=== PATIENT | female | born 1955 | race American Indian/Alaskan Native ===

== ENCOUNTER 2021-04-03 17:30 | Observation (INO) | payer OTHER ==
--- NOTE | 2021-04-03 17:36 | Event Note ---
ED Screening Note ED Screening Note: poor informant lung ca chemo due yesterday- too sick--moved to Wednesday has a port no hx in EMR Can not tell me her MD no family here at this time tachycardia in triage actively vomiting blood RN asked to take pt to main for immediate eval. This initial assessment/diagnostic orders/clinical plan/treatment(s) is/are subject to change based on patients health status, clinical progression and re- assessment by fellow clinical providers in the ED. Further treatment and workup at subsequent clinical providers discretion. Patient/guardian urged not to elope from the ED as their condition may be serious if not clinically assessed and managed. Initial orders include: labs/cultures/hydration will need further hx from family
[2021-04-03] MEDS ORDERED: ONDANSETRON 4 MG/2 ML INJ IV ONE (17:39)
[2021-04-03] MEDS ORDERED: SODIUM CHLORIDE 0.9% 1000 ML 1,000 ML IV ONE (17:40)
[2021-04-03 18:05] LABS: Hematocrit 26.4 % (30.3-42.9); Hemoglobin 8.7 gm/dl (10.1-14.3); Mean Corpuscular HGB Conc 33 % (30-34); Mean Corpuscular Volume 92 fl (79-97); Platelet Count 290 K/mm3 (140-440); Red Blood Count 2.87 M/mm3 (3.65-5.03)
[2021-04-03 18:06] LABS: Red Cell Distribution Width 24.8 % (13.2-15.2)
--- NOTE | 2021-04-03 18:12 | Emergency Department Report ---
HPI - General Chief Complaint: Nausea/Vomiting/Diarrhea Time Seen by Provider: 04/03/21 17:35 - HPI HPI: 65-year-old female with history of lung cancer with her last chemo being 3 weeks ago presents complaining of hemoptysis for the last 3 to 4 hours. The patient states that for the last day or so she has had a dry cough and has felt slightly lightheaded. For the past 3 to 4 hours she says she has been coughing up bloody sputum as well as blood clots. She says she is not vomiting blood but is actually coughing up blood. This is the reason she decided to come in. She was supposed to have chemo yesterday but was unable because she felt lightheaded. Other than the hemoptysis, she denies any associated fever/chills, vision change, neck pain, chest pain, shortness of breath, abdominal pain, nausea, or any other complaints. ED Past Medical Hx - Past Medical History Previous Medical History?: Yes Hx Hypertension: Yes Hx of Cancer: Yes (Lung CA February 2021 dx) Hx Asthma: Yes Hx COPD: Yes - Surgical History Past Surgical History?: Yes Additional Surgical History: Philip cath placement ED Review of Systems ROS: Stated complaint: VOMITING BLOOD Other details as noted in HPI Constitutional: denies: chills, fever Eyes: denies: eye pain, vision change ENT: denies: throat pain, congestion Respiratory: cough, other (hemoptysis). denies: shortness of breath Cardiovascular: denies: chest pain, palpitations Gastrointestinal: denies: abdominal pain, nausea, vomiting Genitourinary: denies: dysuria, frequency Musculoskeletal: denies: back pain, myalgia Skin: denies: rash Neurological: denies: headache, weakness, numbness Physical Exam - Physical Exam Vital Signs: Vital Signs 04/03/21 17:40 Temperature 98.2 F Pulse Rate 117 H Respiratory 24 Rate Blood Pressure 142/71 [Right] O2 Sat by Pulse 96 Oximetry Physical Exam: GENERAL: Well developed and well nourished. No acute distress HEENT: Normocephalic. No obvious signs of trauma. Slightly dry mucous membranes. Posterior pharynx is visualized without any obvious abnormalities EYES: Extraocular movements are intact. Pupils are equal round and reactive to light bilaterally NECK: Supple. Trachea is midline. LUNGS: Slightly tachypneic but without accessory muscle use. Equal chest rise bilaterally. There are rales and rhonchi heard over the right mid and lower lung velez. Otherwise clear to auscultation. HEART/CARDIOVASCULAR: Tachycardic but with regular rhythm. No murmurs or rubs. VASCULAR: 2+ peripheral pulses. Cap refill < 2 seconds. Trace pitting edema bilaterally. ABDOMEN: Abdomen is soft and nondistended. There is no significant tenderness, guarding or rebound. SKIN: Skin is warm and dry NEURO: Patient is awake, alert, and oriented. champion of sustainable design II-XII grossly intact. No focal deficits. Normal motor and sensory exam throughout. Normal speech. MUSCULOSKELETAL: No obvious deformities. No significant tenderness. Normal ROM throughout. BACK/SPINE: No costovertebral angle tenderness. ED Course Vital Signs 04/03/21 17:40 Temperature 98.2 F Pulse Rate 117 H Respiratory 24 Rate Blood Pressure 142/71 [Right] O2 Sat by Pulse 96 Oximetry ED Medical Decision Making - Lab Data Result diagrams: 04/03/21 20:47 04/03/21 17:51 Lab Results 04/03/21 04/03/21 04/03/21 Range/Units 17:51 17:51 17:51 WBC 11.7 H (4.5-11.0) K/mm3 RBC 2.87 L (3.65-5.03) M/mm3 Hgb 8.7 L (10.1-14.3) gm/dl Hct 26.4 L (30.3-42.9) % MCV 92 (79-97) fl MCH 30 (28-32) pg MCHC 33 (30-34) % RDW 24.8 H (13.2-15.2) % Plt Count 290 (140-440) K/mm3 Add Manual Diff Complete Total Counted 100 Seg Neuts % (Manual) 81.0 H (40.0-70.0) % Band Neutrophils % 1.0 % Lymphocytes % (Manual) 12.0 L (13.4-35.0) % Monocytes % (Manual) 4.0 (0.0-7.3) % Eosinophils % (Manual) 1.0 (0.0-4.3) % Metamyelocytes % 1.0 % Myelocytes % % Nucleated RBC % Not Reportable Seg Neutrophils # Man 9.5 H (1.8-7.7) K/mm3 Band Neutrophils # 0.1 K/mm3 Lymphocytes # (Manual) 1.4 (1.2-5.4) K/mm3 Abs React Lymphs (Man) 0.0 K/mm3 Monocytes # (Manual) 0.5 (0.0-0.8) K/mm3 Eosinophils # (Manual) 0.1 (0.0-0.4) K/mm3 Basophils # (Manual) 0.0 (0.0-0.1) K/mm3 Metamyelocytes # 0.1 K/mm3 Myelocytes # 0.0 K/mm3 Promyelocytes # 0.0 K/mm3 Blast Cells # 0.0 K/mm3 WBC Morphology Not Reportable Hypersegmented Neuts Not Reportable Hyposegmented Neuts Not Reportable Hypogranular Neuts Not Reportable Smudge Cells Not Reportable Toxic Granulation Not Reportable Toxic Vacuolation Not Reportable Dohle Bodies Not Reportable Pelger-Huet Anomaly Not Reportable Shahnaz Rods Not Reportable Platelet Estimate Consistent w auto Clumped Platelets Not Reportable Plt Clumps, EDTA Not Reportable Large Platelets Few Giant Platelets Not Reportable Platelet Satelliting Not Reportable Plt Morphology Comment Not Reportable RBC Morphology Not Reportable Dimorphic RBCs Not Reportable Polychromasia 1+ Hypochromasia Not Reportable Poikilocytosis Not Reportable Anisocytosis 2+ Microcytosis Not Reportable Macrocytosis Few Spherocytes Not Reportable Pappenheimer Bodies Not Reportable Sickle Cells Not Reportable Target Cells Not Reportable Tear Drop Cells Not Reportable Ovalocytes Not Reportable Helmet Cells Not Reportable Good-Frost Bodies Not Reportable Blanchard Rings Not Reportable Hunker Cells Not Reportable Bite Cells Not Reportable Crenated Cell Not Reportable Elliptocytes Not Reportable Acanthocytes (Spur) Not Reportable Rouleaux Not Reportable Hemoglobin C Crystals Not Reportable Schistocytes Not Reportable Malaria parasites Not Reportable Manohar Bodies Not Reportable Hem Pathologist Commnt No PT 14.2 (12.2-14.9) Sec. INR 1.04 (0.87-1.13) APTT 33.3 (24.2-36.6) Sec. Sodium 131 L (137-145) mmol/L Potassium 3.8 (3.6-5.0) mmol/L Chloride 96.1 L (98-107) mmol/L Carbon Dioxide 27 (22-30) mmol/L Anion Gap 12 mmol/L BUN 7 (7-17) mg/dL Creatinine 0.3 L (0.6-1.2) mg/dL Estimated GFR > 60 ml/min BUN/Creatinine Ratio 23 % Glucose 99 (65-100) mg/dL Lactic Acid (0.7-2.0) mmol/L Uric Acid (3.5-7.6) mg/dL Calcium 8.1 L (8.4-10.2) mg/dL Phosphorus (2.5-4.5) mg/dL Magnesium (1.7-2.3) mg/dL Total Bilirubin 0.20 (0.1-1.2) mg/dL AST 23 (5-40) units/L ALT 27 (7-56) units/L Alkaline Phosphatase 241 H (35-129) units/L Lactate Dehydrogenase (91-180) units/L Total Protein 6.6 (6.3-8.2) g/dL Albumin 3.0 L (3.9-5) g/dL Albumin/Globulin Ratio 0.8 % Lipase 34 (13-60) units/L Urine Color (Yellow) Urine Turbidity (Clear) Urine pH (5.0-7.0) Ur Specific [place] (1.003-1.030) Urine Protein (Negative) mg/dL Urine Glucose (UA) (Negative) mg/dL Urine Ketones (Negative) mg/dL Urine Blood (Negative) Urine Nitrite (Negative) Urine Bilirubin (Negative) Urine Urobilinogen (<2.0) mg/dL Ur Leukocyte Esterase (Negative) Urine WBC (Auto) (0.0-6.0) /HPF Urine RBC (Auto) (0.0-6.0) /HPF U Epithel Cells (Auto) (0-13.0) /HPF Urine Bacteria (Auto) (Negative) /HPF Urine Mucus /HPF Blood Type Antibody Screen 04/03/21 04/03/21 04/03/21 Range/Units 17:51 17:51 17:51 WBC (4.5-11.0) K/mm3 RBC (3.65-5.03) M/mm3 Hgb (10.1-14.3) gm/dl Hct (30.3-42.9) % MCV (79-97) fl MCH (28-32) pg MCHC (30-34) % RDW (13.2-15.2) % Plt Count (140-440) K/mm3 Add Manual Diff Total Counted Seg Neuts % (Manual) (40.0-70.0) % Band Neutrophils % % Lymphocytes % (Manual) (13.4-35.0) % Monocytes % (Manual) (0.0-7.3) % Eosinophils % (Manual) (0.0-4.3) % Metamyelocytes % % Myelocytes % % Nucleated RBC % Seg Neutrophils # Man (1.8-7.7) K/mm3 Band Neutrophils # K/mm3 Lymphocytes # (Manual) (1.2-5.4) K/mm3 Abs React Lymphs (Man) K/mm3 Monocytes # (Manual) (0.0-0.8) K/mm3 Eosinophils # (Manual) (0.0-0.4) K/mm3 Basophils # (Manual) (0.0-0.1) K/mm3 Metamyelocytes # K/mm3 Myelocytes # K/mm3 Promyelocytes # K/mm3 Blast Cells # K/mm3 WBC Morphology Hypersegmented Neuts Hyposegmented Neuts Hypogranular Neuts Smudge Cells Toxic Granulation Toxic Vacuolation Dohle Bodies Pelger-Huet Anomaly Shahnaz Rods Platelet Estimate Clumped Platelets Plt Clumps, EDTA Large Platelets Giant Platelets Platelet Satelliting Plt Morphology Comment RBC Morphology Dimorphic RBCs Polychromasia Hypochromasia Poikilocytosis Anisocytosis Microcytosis Macrocytosis Spherocytes Pappenheimer Bodies Sickle Cells Target Cells Tear Drop Cells Ovalocytes Helmet Cells Good-Frost Bodies Blanchard Rings Hunker Cells Bite Cells Crenated Cell Elliptocytes Acanthocytes (Spur) Rouleaux Hemoglobin C Crystals Schistocytes Malaria parasites Manohar Bodies Hem Pathologist Commnt PT (12.2-14.9) Sec. INR (0.87-1.13) APTT (24.2-36.6) Sec. Sodium (137-145) mmol/L Potassium (3.6-5.0) mmol/L Chloride (98-107) mmol/L Carbon Dioxide (22-30) mmol/L Anion Gap mmol/L BUN (7-17) mg/dL Creatinine (0.6-1.2) mg/dL Estimated GFR ml/min BUN/Creatinine Ratio % Glucose (65-100) mg/dL Lactic Acid 1.20 (0.7-2.0) mmol/L Uric Acid 3.7 (3.5-7.6) mg/dL Calcium (8.4-10.2) mg/dL Phosphorus 3.30 (2.5-4.5) mg/dL Magnesium 1.60 L (1.7-2.3) mg/dL Total Bilirubin (0.1-1.2) mg/dL AST (5-40) units/L ALT (7-56) units/L Alkaline Phosphatase (35-129) units/L Lactate Dehydrogenase 208 H (91-180) units/L Total Protein (6.3-8.2) g/dL Albumin (3.9-5) g/dL Albumin/Globulin Ratio % Lipase (13-60) units/L Urine Color (Yellow) Urine Turbidity (Clear) Urine pH (5.0-7.0) Ur Specific [place] (1.003-1.030) Urine Protein (Negative) mg/dL Urine Glucose (UA) (Negative) mg/dL Urine Ketones (Negative) mg/dL Urine Blood (Negative) Urine Nitrite (Negative) Urine Bilirubin (Negative) Urine Urobilinogen (<2.0) mg/dL Ur Leukocyte Esterase (Negative) Urine WBC (Auto) (0.0-6.0) /HPF Urine RBC (Auto) (0.0-6.0) /HPF U Epithel Cells (Auto) (0-13.0) /HPF Urine Bacteria (Auto) (Negative) /HPF Urine Mucus /HPF Blood Type B POSITIVE Antibody Screen Positive 04/03/21 04/03/21 Range/Units 20:34 20:47 WBC 14.6 H (4.5-11.0) K/mm3 RBC 2.74 L (3.65-5.03) M/mm3 Hgb 8.4 L (10.1-14.3) gm/dl Hct 25.5 L (30.3-42.9) % MCV 93 (79-97) fl MCH 31 (28-32) pg MCHC 33 (30-34) % RDW 25.3 H (13.2-15.2) % Plt Count 273 (140-440) K/mm3 Add Manual Diff Complete Total Counted 100 Seg Neuts % (Manual) 77.0 H (40.0-70.0) % Band Neutrophils % 2.0 % Lymphocytes % (Manual) 11.0 L (13.4-35.0) % Monocytes % (Manual) 6.0 (0.0-7.3) % Eosinophils % (Manual) 1.0 (0.0-4.3) % Metamyelocytes % 1.0 % Myelocytes % 2.0 % Nucleated RBC % Not Reportable Seg Neutrophils # Man 11.2 H (1.8-7.7) K/mm3 Band Neutrophils # 0.3 K/mm3 Lymphocytes # (Manual) 1.6 (1.2-5.4) K/mm3 Abs React Lymphs (Man) 0.0 K/mm3 Monocytes # (Manual) 0.9 H (0.0-0.8) K/mm3 Eosinophils # (Manual) 0.1 (0.0-0.4) K/mm3 Basophils # (Manual) 0.0 (0.0-0.1) K/mm3 Metamyelocytes # 0.1 K/mm3 Myelocytes # 0.3 K/mm3 Promyelocytes # 0.0 K/mm3 Blast Cells # 0.0 K/mm3 WBC Morphology Not Reportable Hypersegmented Neuts Not Reportable Hyposegmented Neuts Not Reportable Hypogranular Neuts Not Reportable Smudge Cells Not Reportable Toxic Granulation Not Reportable Toxic Vacuolation Not Reportable Dohle Bodies Not Reportable Pelger-Huet Anomaly Not Reportable Shahnaz Rods Not Reportable Platelet Estimate Consistent w auto Clumped Platelets Not Reportable Plt Clumps, EDTA Not Reportable Large Platelets Not Reportable Giant Platelets Not Reportable Platelet Satelliting Not Reportable Plt Morphology Comment Not Reportable RBC Morphology Not Reportable Dimorphic RBCs Not Reportable Polychromasia Few Hypochromasia Not Reportable Poikilocytosis Not Reportable Anisocytosis 2+ Microcytosis Not Reportable Macrocytosis Not Reportable Spherocytes Not Reportable Pappenheimer Bodies Not Reportable Sickle Cells Not Reportable Target Cells Not Reportable Tear Drop Cells Not Reportable Ovalocytes Not Reportable Helmet Cells Not Reportable Good-Frost Bodies Not Reportable Blanchard Rings Not Reportable Hunker Cells Not Reportable Bite Cells Not Reportable Crenated Cell Not Reportable Elliptocytes Not Reportable Acanthocytes (Spur) Not Reportable Rouleaux Not Reportable Hemoglobin C Crystals Not Reportable Schistocytes Not Reportable Malaria parasites Not Reportable Manohar Bodies Not Reportable Hem Pathologist Commnt No PT (12.2-14.9) Sec. INR (0.87-1.13) APTT (24.2-36.6) Sec. Sodium (137-145) mmol/L Potassium (3.6-5.0) mmol/L Chloride (98-107) mmol/L Carbon Dioxide (22-30) mmol/L Anion Gap mmol/L BUN (7-17) mg/dL Creatinine (0.6-1.2) mg/dL Estimated GFR ml/min BUN/Creatinine Ratio % Glucose (65-100) mg/dL Lactic Acid (0.7-2.0) mmol/L Uric Acid (3.5-7.6) mg/dL Calcium (8.4-10.2) mg/dL Phosphorus (2.5-4.5) mg/dL Magnesium (1.7-2.3) mg/dL Total Bilirubin (0.1-1.2) mg/dL AST (5-40) units/L ALT (7-56) units/L Alkaline Phosphatase (35-129) units/L Lactate Dehydrogenase (91-180) units/L Total Protein (6.3-8.2) g/dL Albumin (3.9-5) g/dL Albumin/Globulin Ratio % Lipase (13-60) units/L Urine Color Yellow (Yellow) Urine Turbidity Clear (Clear) Urine pH 8.0 H (5.0-7.0) Ur Specific [place] 1.053 H (1.003-1.030) Urine Protein <15 mg/dl (Negative) mg/dL Urine Glucose (UA) Neg (Negative) mg/dL Urine Ketones Neg (Negative) mg/dL Urine Blood Neg (Negative) Urine Nitrite Neg (Negative) Urine Bilirubin Neg (Negative) Urine Urobilinogen 4.0 (<2.0) mg/dL Ur Leukocyte Esterase Lg (Negative) Urine WBC (Auto) 29.0 H (0.0-6.0) /HPF Urine RBC (Auto) 12.0 (0.0-6.0) /HPF U Epithel Cells (Auto) 1.0 (0-13.0) /HPF Urine Bacteria (Auto) 1+ (Negative) /HPF Urine Mucus Few /HPF Blood Type Antibody Screen - EKG Data -: EKG Interpreted by Me - EKG Data 04/03/21 19:24 Sinus tachycardia. Normal axis. Normal intervals. No ectopy. No significant ST segment or T wave abnormalities. - Radiology Data CHEST 1 VIEW 04/03/2021 5:44 PM INDICATION / CLINICAL INFORMATION: Shortness of breath. COMPARISON: None available. FINDINGS: SUPPORT DEVICES: Right IJ central venous port appears appropriately position. HEART / MEDIASTINUM: No significant abnormality. LUNGS / PLEURA: There is a nodular opacity in the right upper lobe. No pneumothorax. ADDITIONAL FINDINGS: No significant additional findings. IMPRESSION: 1. Nodular opacity in the right upper lobe. Further evaluation with CT of the chest recommended. Signer Name: Daniel Fabian MD Signed: 04/03/2021 5:15 PM Workstation Name: [email or web address]) CTA CHEST WITH IV CONTRAST INDICATION: Hemoptysis, possible PE. TECHNIQUE: Axial CT images were obtained through the chest after injection of 100 cc O mnipaque 350 IV contrast. 3 plane MIP reconstructions were produced. All CT scans at this location are performed using CT dose reduction for ALARA by means of automated exposure control. COMPARISON: One view of the chest performed today. FINDINGS: PULMONARY ARTERIES: There is good opacification of the pulmonary arteries to the subsegmental level without visualization of pulmonary emboli. Narrowing of right upper lobe pulmonary artery segments and subsegments is seen secondary to mediastinal adenopathy and a right upper lobe mass. AORTA AND ARTERIES: The aorta is normal in caliber with mild generalized atherosclerosis and no other significant abnormalities. HEART: Normal in size with a trace pericardial effusion. MEDIASTINUM: Confluent mediastinal lymphadenopathy is seen most notably along the right hilar and subcarinal regions measuring approximately 5.5 x 4.0 cm. The margins of this l ymphadenopathy or somewhat indistinct. The trachea and main bronchi are patent and normal in caliber. LUNGS: A right upper lobe mass measures approximately 5.6 x 3.4 cm on image 36 of series 2. There is surrounding probable atelectasis. A moderate right pleural effusion is noted. There are 2 noncalcified right lower lobe nodules present laterally on images 53 through 57 of series 2 measuring up to 5.8 mm. No pneumothorax or other significant abnormalities. ADDITIONAL FINDINGS: A right subclavian vein Port-A-Cath is seen that terminates at the cavoatrial junction with questionable thrombus noted along the distal third of its course. UPPER ABDOMEN: No acute findings. BONES: No significant osseous abnormality. IMPRESSION: 1. No CT evidence for pulmonary embolism. 2. Suspected advanced right upper lobe bronchogenic carcinoma as above. Please correlate with the patient's history. 3. Additional findings as above. Signer Name: Marcos Lawton MD Signed: 04/03/2021 7:09 PM Workstation Name: [id number] - Medical Decision Making 65-year-old female with history of lung cancer presents complaining of 3 to 4 hours of hemoptysis and 1 day of cough. She is coughing up bloody sputum and blood clots. Denies chest pain or shortness of breath. Initial assessment she is afebrile, hypertensive, and tachycardic with a heart rate in the 110s. She is slightly tachypneic but in no acute distress. She has slightly dry mucous membranes. Lung auscultation reveals rhonchi and crackles over the right mid to lower lung velez. The remainder of her physical examination is grossly within normal limits. Given that this is the patient with a history of cancer and currently on chemotherapy (last treatment 3 weeks ago), full sepsis order set was initiated including labs and cultures. In addition I have ordered CTA of the chest to assess for evidence of pulmonary embolism. We will give 1 L of IV fluids and reassess frequently. On repeat assessment at 7:15 PM, the patient is resting comfortably in the bed. She has had no further episodes of hemoptysis since arrival. IV fluids are running. Labs have resulted and reveal white blood cell count of 11.7. She do es have anemia with a hemoglobin of 8.7 but from unknown baseline. Sodium is slightly low at 131, otherwise there are no significant electrolyte abnormalities and kidney function is normal. We will follow up the results of the CTA of the chest and continue monitor her closely. At 8:53 PM I spoke with Dr. Padro who is covering for the patient's oncologisat Dr. Cain. We discussed the details of the case including the presentation, vital signs, and results of the labs as well as scans. CTA of the chest is resulted in reveals no evidence of pulmonary embolism. There are findings consistent with advanced lung carcinoma. I expressed my concern about the patient's hemoglobin of 8.7. He states that if the patient is stable she should be discharged home with instructions to follow-up with Dr. Hall in the office tomorrow who will arrange for possible scope by GI. I asked him if he would like me to repeat a CBC to ensure that the hemoglobin is stable and he stated his agreement with this plan. On repeat assessment at 9:35 PM, the patient is resting comfortably in the bed. Still without any further episodes of hemoptysis. Repeat CBC reveals hemoglobin of 8.4. The patient's leukocytosis on repeat CBC could be related to the physiologic stress of coming to the emergency room and having an IV placed. There is no mention of opacities in the lungs to suggest pneumonia and there is no other findings to suggest infection. The patient will receive an additional 500 mL bolus of IV fluids. Her heart rate is now ranging from 95- 100s. If she remains stable with improved heart rate she will be discharged home according to the plan outlined above. Around 10:50 PM, while receiving the last fluid bolus, the patient again started having hemoptysis. In light of this, given her low hemoglobin and mild persistent tachycardia, she will be admitted to the hospitalist for further observation, work-up, and management. Given leukocytosis on recent CBC will give 1 dose of IV ceftriaxone in case of concomitant pneumonia. This was all explained to the patient expressed understanding and agreement with the plan of care. Urinalysis has returned and reveals evidence of urinary tract infection which will also be covered by ceftriaxone. Critical Care Time: Yes (35) Critical care time in (mins) excluding proc time.: 35 Critical care attestation.: If time is entered above; I have spent that time in minutes in the direct care of this critically ill patient, excluding procedure time. Critical care time was spent in the assessment, evaluation, management, and coordination of care for critical anemia and hemoptysis requiring close observation and multiple reassessments ED Disposition Clinical Impression: Carcinoma, lung, Hemoptysis, unspecified, Anemia, UTI (urinary tract infection) Disposition: OP ADMIT IP TO THIS HOSP Is pt being admited?: Yes Condition: Fair
[2021-04-03 18:14] LABS: INR 1.04 (0.87-1.13)
[2021-04-03 18:15] LABS: Partial Thromboplastin Time 33.3 Sec. (24.2-36.6)
--- NOTE | 2021-04-03 18:19 | XRay Report ---
CHEST 1 VIEW 04/03/2021 5:44 PM INDICATION / CLINICAL INFORMATION: Shortness of breath. COMPARISON: None available. FINDINGS: SUPPORT DEVICES: Right IJ central venous port appears appropriately position. HEART / MEDIASTINUM: No significant abnormality. LUNGS / PLEURA: There is a nodular opacity in the right upper lobe. No pneumothorax. ADDITIONAL FINDINGS: No significant additional findings. IMPRESSION: 1. Nodular opacity in the right upper lobe. Further evaluation with CT of the chest recommended. Signer Name: Daniel Fabian MD Signed: 04/03/2021 6:15 PM Workstation Name: [id number]
[2021-04-03 18:29] LABS: Alanine Aminotransferase 27 units/L (7-56); Blood Urea Nitrogen 7 mg/dL (7-17); Calcium 8.1 mg/dL (8.4-10.2); Hemolysis Index 1
[2021-04-03 18:32] LABS: BUN/Creatinine Ratio 23; Uric Acid 3.7 mg/dL (3.5-7.6)
--- NOTE | 2021-04-03 20:13 | Cat Scan Report ---
CTA CHEST WITH IV CONTRAST INDICATION: Hemoptysis, possible PE. TECHNIQUE: Axial CT images were obtained through the chest after injection of 100 cc Omnipaque 350 IV contrast. 3 plane MIP reconstructions were produced. All CT scans at this location are performed using CT dose reduction for ALARA by means of automated exposure control. COMPARISON: One view of the chest performed today. FINDINGS: PULMONARY ARTERIES: There is good opacification of the pulmonary arteries to the subsegmental level w ithout visualization of pulmonary emboli. Narrowing of right upper lobe pulmonary artery segments and subsegments is seen secondary to mediastinal adenopathy and a right upper lobe mass. AORTA AND ARTERIES: The aorta is normal in caliber with mild generalized atherosclerosis and no other significant abnormalities. HEART: Normal in size with a trace pericardial effusion. MEDIASTINUM: Confluent mediastinal lymphadenopathy is seen most notably along the right hilar and sub carinal regions measuring approximately 5.5 x 4.0 cm. The margins of this lymphadenopathy or somewhat indistinct. The trachea and main bronchi are patent and normal in caliber. LUNGS: A right upper lobe mass measures approximately 5.6 x 3.4 cm on image 36 of series 2. There is surrounding probable atelectasis. A moderate right pleural effusion is noted. There are 2 noncalcifie d right lower lobe nodules present laterally on images 53 through 57 of series 2 measuring up to 5.8 mm. No pneumothorax or other significant abnormalities. ADDITIONAL FINDINGS: A right subclavian vein Port-A-Cath is seen that terminates at the cavoatrial ju nction with questionable thrombus noted along the distal third of its course. UPPER ABDOMEN: No acute findings. BONES: No significant osseous abnormality. IMPRESSION: 1. No CT evidence for pulmonary embolism. 2. Suspected advanced right upper lobe bronchogenic carcinoma as above. Please correlate with the pat ient's history. 3. Additional findings as above. Signer Name: Marcos Lawton MD Signed: 04/03/2021 8:09 PM Workstation Name: [id number]
[2021-04-03 20:15] LABS: Anisocytosis 2+; Band Neutrophils # (Manual) 0.1 K/mm3; Large Platelets Few; Macrocytosis Few; Platelet Estimate Consistent w Auto; Total Cells Counted 100
[2021-04-03] MEDS ORDERED: SODIUM CHLORIDE 0.9% 500 ML 500 ML IV ONE (20:54)
[2021-04-03] MEDS ORDERED: PANTOPRAZOLE 40 MG INJ IV ONE (20:54)
[2021-04-03 21:06] LABS: Bacteria,Urine 1+ /HPF (Negative); Bilirubin,Urine NEG (Negative); Blood,Urine NEG (Negative); Color,Urine Yellow (Yellow); Mucus,Urine FEW /HPF; Protein,Urine <15 mg/dL mg/dL (Negative)
[2021-04-03 21:10] LABS: Hematocrit 25.5 % (30.3-42.9); Hemoglobin 8.4 gm/dl (10.1-14.3); Mean Corpuscular HGB Conc 33 % (30-34); Mean Corpuscular Volume 93 fl (79-97); Platelet Count 273 K/mm3 (140-440); Red Blood Count 2.74 M/mm3 (3.65-5.03)
[2021-04-03 21:15] LABS: Red Cell Distribution Width 25.3 % (13.2-15.2)
[2021-04-03 22:30] LABS: Anisocytosis 2+; Band Neutrophils # (Manual) 0.3 K/mm3; Myelocytes # (Manual) 0.3 K/mm3; Total Cells Counted 100
[2021-04-03 22:31] LABS: Platelet Estimate Consistent w Auto
[2021-04-03] MEDS ORDERED: cefTRIAXone/NS 1 GM/50 ML 1 GM/50 ML BAG IV ONE (23:12)
[2021-04-03] MEDS ORDERED: ONDANSETRON 4 MG/2 ML INJ IV PRN (23:23)
[2021-04-03] MEDS ORDERED: MORPHINE 2 MG/1 ML INJ IV PRN (23:23)
--- NOTE | 2021-04-03 23:31 | History and Physical Report ---
History of Present Illness Date of examination: 04/03/21 Date of admission: 04/03/21 23:01 Chief complaint: Hemoptysis History of present illness: 65-year-old -Filipino female with known history of lung cancer currently on chemotherapy presents to the emergency room today complaining of hemoptysis which has been ongoing for the past 3 to 4 days. Patient states that she initially had some dry cough and subsequently started having hemoptysis. She denies any fever or chills and denies any chest pain, no nausea vomiting and no diarrhea. Denies any headache but feels lightheaded occasionally. Patient was supposed to have chemotherapy yesterday but was unable to make the appointment due to her lightheadedness. Her last chemotherapy was about 3 weeks ago. Patient follows up with oncology at [facility]. Her oncologist is Patient denies any sick contacts and no recent travel. Denies any contact with anyone with COVID-19. Work-up in the emergency room today reveals a hemoglobin of 8.7 and a white count of 15. Patient is being admitted with hemoptysis. Past History Past Medical History: COPD, hypertension, other (Asthma,H/O Lung Ca.(diagnosed in 02/2021)) Past Surgical History: Other (Philip Cath Placement) Social history: smoking (Quit tobacco use about 4 months ago.) Family history: no significant family history Medications and Allergies Allergies Allergy/AdvReac Type Severity Reaction Status Date / Time No Known Allergies Allergy Verified 04/03/21 23:37 Active Meds: Active Medications Ceftriaxone Sodium (Rocephin/Ns 1 Gm/50 Ml) 1 gm in 50 mls @ 100 mls/hr IV ONCE ONE; Protocol Stop: 04/03/21 23:41 Review of Systems Constitutional: no fever, no chills Ears, nose, mouth and throat: no nasal congestion, no sore throat Cardiovascular: no chest pain, no palpitations Respiratory: cough, hemoptysis, no shortness of breath Gastrointestinal: no abdominal pain, no nausea, no vomiting, no diarrhea Genitourinary Female: no dysuria, no hematuria Musculoskeletal: no neck pain, no low back pain Integumentary: no rash, no pruritis Neurological: no headaches, no confusion Psychiatric: no anxiety, no depression Endocrine: no polyphagia, no polydipsia, no polyuria, no nocturia Exam - Constitutional Vitals: Temp Pulse Resp BP Pulse Ox 98.2 F 99 H 19 119/68 97 04/03/21 17:40 04/03/21 21:30 04/03/21 21:30 04/03/21 21:30 04/03/21 21:30 General appearance: Present: no acute distress, well-nourished - EENT Eyes: Present: PERRL, EOM intact ENT: hearing intact, clear oral mucosa, dentition normal, poor dentition - Neck Neck: Present: supple, normal ROM - Respiratory Respiratory effort: normal Respiratory: bilateral: CTA - Cardiovascular Rhythm: regular Heart Sounds: Present: S1 & S2. Absent: gallop, systolic murmur, diastolic murmur, rub, click - Extremities Extremities: no ischemia, pulses intact, pulses symmetrical, No edema, normal temperature, normal color, Full ROM Peripheral Pulses: within normal limits - Abdominal General gastrointestinal: Present: soft, non-tender, non-distended, normal bowel sounds. Absent: mass - Integumentary Integumentary: Present: clear, warm, dry. Absent: rash - Musculoskeletal Musculoskeletal: strength equal bilaterally - Psychiatric Psychiatric: appropriate mood/affect, intact judgment & insight, memory intact, cooperative - Neurologic Neurologic: CNII-XII intact, no focal deficits, moves all extremities - Additional findings Additional findings: Skin: Port on right anterior chest wall. Results - Labs CBC & Chem 7: 04/03/21 20:47 04/03/21 17:51 Labs: Abnormal lab results 04/03/21 04/03/21 04/03/21 Range/Units 17:51 17:51 17:51 WBC 11.7 H (4.5-11.0) K/mm3 RBC 2.87 L (3.65-5.03) M/mm3 Hgb 8.7 L (10.1-14.3) gm/dl Hct 26.4 L (30.3-42.9) % RDW 24.8 H (13.2-15.2) % Seg Neuts % (Manual) 81.0 H (40.0-70.0) % Lymphocytes % (Manual) 12.0 L (13.4-35.0) % Seg Neutrophils # Man 9.5 H (1.8-7.7) K/mm3 Monocytes # (Manual) (0.0-0.8) K/mm3 Sodium 131 L (137-145) mmol/L Chloride 96.1 L (98-107) mmol/L Creatinine 0.3 L (0.6-1.2) mg/dL Calcium 8.1 L (8.4-10.2) mg/dL Magnesium 1.60 L (1.7-2.3) mg/dL Alkaline Phosphatase 241 H (35-129) units/L Lactate Dehydrogenase 208 H (91-180) units/L Albumin 3.0 L (3.9-5) g/dL Urine pH (5.0-7.0) Ur Specific [place] (1.003-1.030) Urine WBC (Auto) (0.0-6.0) /HPF 04/03/21 04/03/21 Range/Units 20:34 20:47 WBC 14.6 H (4.5-11.0) K/mm3 RBC 2.74 L (3.65-5.03) M/mm3 Hgb 8.4 L (10.1-14.3) gm/dl Hct 25.5 L (30.3-42.9) % RDW 25.3 H (13.2-15.2) % Seg Neuts % (Manual) 77.0 H (40.0-70.0) % Lymphocytes % (Manual) 11.0 L (13.4-35.0) % Seg Neutrophils # Man 11.2 H (1.8-7.7) K/mm3 Monocytes # (Manual) 0.9 H (0.0-0.8) K/mm3 Sodium (137-145) mmol/L Chloride (98-107) mmol/L Creatinine (0.6-1.2) mg/dL Calcium (8.4-10.2) mg/dL Magnesium (1.7-2.3) mg/dL Alkaline Phosphatase (35-129) units/L Lactate Dehydrogenase (91-180) units/L Albumin (3.9-5) g/dL Urine pH 8.0 H (5.0-7.0) Ur Specific [place] 1.053 H (1.003-1.030) Urine WBC (Auto) 29.0 H (0.0-6.0) /HPF Assessment and Plan - Patient Problems (1) Hemoptysis Current Visit: Yes Status: Acute Plan to address problem: Etiology is unclear. Patient has an underlying history of lung cancer. She has been placed on empiric IV antibiotics for possible underlying bronchitis. Patient admitted and will be closely monitored overnight. Will monitor CBC. Consult placed to heme-onc and director business for recommendations. (2) H/O: lung cancer Current Visit: Yes Status: Acute Plan to address problem: Patient currently on chemotherapy. She follows up at [facility]. Last chemotherapy was about 3 weeks ago. (3) Hypertension Current Visit: Yes Status: Acute Plan to address problem: We will resume routine home medications once reconciled. We will monitor vital signs. (4) DVT prophylaxis Current Visit: Yes Status: Acute Plan to address problem: Patient placed on sequential compression device. (5) Full code status Current Visit: Yes Status: Acute Plan to address problem: Patient is a full code.
[2021-04-04] MEDS: SODIUM CHLORIDE 0.9% 1000 ML 1,000 ML IV SCH ×2 (01:30→22:33)
[2021-04-04] MEDS: ACETAMINOPHEN 325 MG TAB PO PRN ×2 (03:11→12:47)
[2021-04-04 05:27] LABS: Blood Urea Nitrogen 6 mg/dL (7-17); Calcium 8.1 mg/dL (8.4-10.2); Hemolysis Index 0
[2021-04-04 05:30] LABS: BUN/Creatinine Ratio 30
[2021-04-04 05:34] LABS: Hematocrit 24.7 % (30.3-42.9); Mean Corpuscular HGB Conc 32 % (30-34); Mean Corpuscular Volume 89 fl (79-97); Platelet Count 293 K/mm3 (140-440); Red Blood Count 2.76 M/mm3 (3.65-5.03)
[2021-04-04 05:36] LABS: Red Cell Distribution Width 24.7 % (13.2-15.2)
[2021-04-04 05:41] LABS: INR 1.06 (0.87-1.13)
[2021-04-04 06:38] LABS: Anisocytosis 2+; Band Neutrophils # (Manual) 0.2 K/mm3; Total Cells Counted 100
[2021-04-04 06:39] LABS: Platelet Estimate Consistent w Auto
--- NOTE | 2021-04-04 08:05 | Hem/Onc Consultation ---
History of Present Illness - History of Present Illness onc prelim eval data review only 65yo AA woman with lung cancer (details unavailable), followed by Dr. Sajan Cain at [place] (per notes). recent chemotherapy eval for hemoptysis mention of lightheadedness found to have anemia data reviewed below Chest CT: found to have R lung mass 5cm and R pl effusion no PE found IMP: lung cancer, on chemotherapy R pl effusion mod severe anemia, partly due to chemotherapy recent hemoptysis REC: no transfusions planned labs to include Hgb electrophoresis, SPEP pulm eval consider thoracentesis anticipate f/u with her oncologist after discharge Laboratory Last Values WBC 17.2 K/mm3 (4.5-11.0) H 04/04/21 04:53 Hgb 8.0 gm/dl (10.1-14.3) L 04/04/21 04:53 Hct 24.7 % (30.3-42.9) L 04/04/21 04:53 Plt Count 293 K/mm3 (140-440) 04/04/21 04:53 PT 14.4 Sec. (12.2-14.9) 04/04/21 04:53 INR 1.06 (0.87-1.13) 04/04/21 04:53 APTT 33.3 Sec. (24.2-36.6) 04/03/21 17:51 Blood Type B POSITIVE 04/03/21 17:51 Antibody Screen Positive 04/03/21 17:51 Past History Past Medical History: COPD, hypertension, other (Asthma,H/O Lung Ca.(diagnosed in 02/2021)) Past Surgical History: Other (Philip Cath Placement) Social history: smoking (Quit tobacco use about 4 months ago.) Family history: no significant family history Medications and Allergies Allergies Allergy/AdvReac Type Severity Reaction Status Date / Time No Known Allergies Allergy Verified 04/03/21 23:37 Active Meds: Active Medications Acetaminophen (Acetaminophen 325 Mg Tab) 650 mg PO Q4H PRN PRN Reason: Pain MILD(1-3)/Fever >100.5/MONTIEL Last Admin: 04/04/21 03:11 Dose: 650 mg Documented by: Sodium Chloride (Nacl 0.9% 1000 Ml) 1,000 mls @ 75 mls/hr IV DIRECT LUCY Last Admin: 04/04/21 01:30 Dose: 75 mls/hr Documented by: Ceftriaxone Sodium (Rocephin/Ns 1 Gm/50 Ml) 1 gm in 50 mls @ 100 mls/hr IV Q24H [facility]; Protocol Stop: 04/08/21 23:59 Morphine Sulfate (Morphine 2 Mg/1 Ml Inj) 2 mg IV Q4H PRN PRN Reason: Pain, Moderate (4-6) Ondansetron HCl (Ondansetron 4 Mg/2 Ml Inj) 4 mg IV Q8H PRN PRN Reason: Nausea And Vomiting Sodium Chloride (Sodium Chloride 0.9% 10 Ml Flush Syringe) 10 ml IV BID LUCY Sodium Chloride (Sodium Chloride 0.9% 10 Ml Flush Syringe) 10 ml IV PRN PRN PRN Reason: LINE FLUSH Exam - Constitutional Vitals: Last Vital Signs Temp 98.3 F 04/04/21 05:36 Pulse 99 H 04/04/21 05:36 Resp 18 04/04/21 05:36 BP 141/63 04/04/21 05:36 Pulse Ox 95 04/04/21 05:36 Results - Labs lab Results: Laboratory Results - last 24 hr 04/03/21 04/03/21 04/03/21 17:51 17:51 17:51 WBC 11.7 H RBC 2.87 L Hgb 8.7 L Hct 26.4 L MCV 92 MCH 30 MCHC 33 RDW 24.8 H Plt Count 290 Add Manual Diff Complete Total Counted 100 Seg Neuts % (Manual) 81.0 H Band Neutrophils % 1.0 Lymphocytes % (Manual) 12.0 L Monocytes % (Manual) 4.0 Eosinophils % (Manual) 1.0 Metamyelocytes % 1.0 Myelocytes % Nucleated RBC % Not Reportable Seg Neutrophils # Man 9.5 H Band Neutrophils # 0.1 Lymphocytes # (Manual) 1.4 Abs React Lymphs (Man) 0.0 Monocytes # (Manual) 0.5 Eosinophils # (Manual) 0.1 Basophils # (Manual) 0.0 Metamyelocytes # 0.1 Myelocytes # 0.0 Promyelocytes # 0.0 Blast Cells # 0.0 WBC Morphology Not Reportable Hypersegmented Neuts Not Reportable Hyposegmented Neuts Not Reportable Hypogranular Neuts Not Reportable Smudge Cells Not Reportable Toxic Granulation Not Reportable Toxic Vacuolation Not Reportable Dohle Bodies Not Reportable Pelger-Huet Anomaly Not Reportable Shahnaz Rods Not Reportable Platelet Estimate Consistent w auto Clumped Platelets Not Reportable Plt Clumps, EDTA Not Reportable Large Platelets Few Giant Platelets Not Reportable Platelet Satelliting Not Reportable Plt Morphology Comment Not Reportable RBC Morphology Not Reportable Dimorphic RBCs Not Reportable Polychromasia 1+ Hypochromasia Not Reportable Poikilocytosis Not Reportable Anisocytosis 2+ Microcytosis Not Reportable Macrocytosis Few Spherocytes Not Reportable Pappenheimer Bodies Not Reportable Sickle Cells Not Reportable Target Cells Not Reportable Tear Drop Cells Not Reportable Ovalocytes Not Reportable Helmet Cells Not Reportable Good-Harahan Bodies Not Reportable [place] Rings Not Reportable [place] Cells Not Reportable Bite Cells Not Reportable Crenated Cell Not Reportable Elliptocytes Not Reportable Acanthocytes (Spur) Not Reportable Rouleaux Not Reportable Hemoglobin C Crystals Not Reportable Schistocytes Not Reportable Malaria parasites Not Reportable Manohar Bodies Not Reportable Hem Pathologist Commnt No PT 14.2 INR 1.04 APTT 33.3 Sodium 131 L Potassium 3.8 Chloride 96.1 L Carbon Dioxide 27 Anion Gap 12 BUN 7 Creatinine 0.3 L Estimated GFR > 60 BUN/Creatinine Ratio 23 Glucose 99 Lactic Acid Uric Acid Calcium 8.1 L Phosphorus Magnesium Total Bilirubin 0.20 AST 23 ALT 27 Alkaline Phosphatase 241 H Lactate Dehydrogenase Total Protein 6.6 Albumin 3.0 L Albumin/Globulin Ratio 0.8 Lipase 34 Urine Color Urine Turbidity Urine pH Ur Specific [place] Urine Protein Urine Glucose (UA) Urine Ketones Urine Blood Urine Nitrite Urine Bilirubin Urine Urobilinogen Ur Leukocyte Esterase Urine WBC (Auto) Urine RBC (Auto) U Epithel Cells (Auto) Urine Bacteria (Auto) Urine Mucus Blood Type Antibody Screen 04/03/21 04/03/21 04/03/21 17:51 17:51 17:51 WBC RBC Hgb Hct MCV MCH MCHC RDW Plt Count Add Manual Diff Total Counted Seg Neuts % (Manual) Band Neutrophils % Lymphocytes % (Manual) Monocytes % (Manual) Eosinophils % (Manual) Metamyelocytes % Myelocytes % Nucleated RBC % Seg Neutrophils # Man Band Neutrophils # Lymphocytes # (Manual) Abs React Lymphs (Man) Monocytes # (Manual) Eosinophils # (Manual) Basophils # (Manual) Metamyelocytes # Myelocytes # Promyelocytes # Blast Cells # WBC Morphology Hypersegmented Neuts Hyposegmented Neuts Hypogranular Neuts Smudge Cells Toxic Granulation Toxic Vacuolation Dohle Bodies Pelger-Huet Anomaly Shahnaz Rods Platelet Estimate Clumped Platelets Plt Clumps, EDTA Large Platelets Giant Platelets Platelet Satelliting Plt Morphology Comment RBC Morphology Dimorphic RBCs Polychromasia Hypochromasia Poikilocytosis Anisocytosis Microcytosis Macrocytosis Spherocytes Pappenheimer Bodies Sickle Cells Target Cells Tear Drop Cells Ovalocytes Helmet Cells Good-Harahan Bodies [place] Rings Alfonso Cells Bite Cells Crenated Cell Elliptocytes Acanthocytes (Spur) Rouleaux Hemoglobin C Crystals Schistocytes Malaria parasites Manohar Bodies Hem Pathologist Commnt PT INR APTT Sodium Potassium Chloride Carbon Dioxide Anion Gap BUN Creatinine Estimated GFR BUN/Creatinine Ratio Glucose Lactic Acid 1.20 Uric Acid 3.7 Calcium Phosphorus 3.30 Magnesium 1.60 L Total Bilirubin AST ALT Alkaline Phosphatase Lactate Dehydrogenase 208 H Total Protein Albumin Albumin/Globulin Ratio Lipase Urine Color Urine Turbidity Urine pH Ur Specific [place] Urine Protein Urine Glucose (UA) Urine Ketones Urine Blood Urine Nitrite Urine Bilirubin Urine Urobilinogen Ur Leukocyte Esterase Urine WBC (Auto) Urine RBC (Auto) U Epithel Cells (Auto) Urine Bacteria (Auto) Urine Mucus Blood Type B POSITIVE Antibody Screen Positive 04/03/21 04/03/21 04/04/21 20:34 20:47 04:53 WBC 14.6 H 17.2 H RBC 2.74 L 2.76 L Hgb 8.4 L 8.0 L Hct 25.5 L 24.7 L MCV 93 89 MCH 31 29 MCHC 33 32 RDW 25.3 H 24.7 H Plt Count 273 293 Add Manual Diff Complete Complete Total Counted 100 100 Seg Neuts % (Manual) 77.0 H 90.0 H Band Neutrophils % 2.0 1.0 Lymphocytes % (Manual) 11.0 L 6.0 L Monocytes % (Manual) 6.0 2.0 Eosinophils % (Manual) 1.0 Metamyelocytes % 1.0 1.0 Myelocytes % 2.0 Nucleated RBC % Not Reportable Not Reportable Seg Neutrophils # Man 11.2 H 15.5 H Band Neutrophils # 0.3 0.2 Lymphocytes # (Manual) 1.6 1.0 L Abs React Lymphs (Man) 0.0 0.0 Monocytes # (Manual) 0.9 H 0.3 Eosinophils # (Manual) 0.1 0.0 Basophils # (Manual) 0.0 0.0 Metamyelocytes # 0.1 0.2 Myelocytes # 0.3 0.0 Promyelocytes # 0.0 0.0 Blast Cells # 0.0 0.0 WBC Morphology Not Reportable Not Reportable Hypersegmented Neuts Not Reportable Not Reportable Hyposegmented Neuts Not Reportable Not Reportable Hypogranular Neuts Not Reportable Not Reportable Smudge Cells Not Reportable Not Reportable Toxic Granulation Not Reportable Not Reportable Toxic Vacuolation Not Reportable Not Reportable Dohle Bodies Not Reportable Not Reportable Pelger-Huet Anomaly Not Reportable Not Reportable Shahnaz Rods Not Reportable Not Reportable Platelet Estimate Consistent w auto Consistent w auto Clumped Platelets Not Reportable Not Reportable Plt Clumps, EDTA Not Reportable Not Reportable Large Platelets Not Reportable Not Reportable Giant Platelets Not Reportable Not Reportable Platelet Satelliting Not Reportable Not Reportable Plt Morphology Comment Not Reportable Not Reportable RBC Morphology Not Reportable Not Reportable Dimorphic RBCs Not Reportable Not Reportable Polychromasia Few Few Hypochromasia Not Reportable Not Reportable Poikilocytosis Not Reportable Not Reportable Anisocytosis 2+ 2+ Microcytosis Not Reportable Not Reportable Macrocytosis Not Reportable Not Reportable Spherocytes Not Reportable Not Reportable Pappenheimer Bodies Not Reportable Not Reportable Sickle Cells Not Reportable Not Reportable Target Cells Not Reportable Not Reportable Tear Drop Cells Not Reportable Not Reportable Ovalocytes Not Reportable Not Reportable Helmet Cells Not Reportable Not Reportable Good-Harahan Bodies Not Reportable Not Reportable [place] Rings Not Reportable Not Reportable [place] Cells Not Reportable Not Reportable Bite Cells Not Reportable Not Reportable Crenated Cell Not Reportable Not Reportable Elliptocytes Not Reportable Not Reportable Acanthocytes (Spur) Not Reportable Not Reportable Rouleaux Not Reportable Not Reportable Hemoglobin C Crystals Not Reportable Not Reportable Schistocytes Not Reportable Not Reportable Malaria parasites Not Reportable Not Reportable Manohar Bodies Not Reportable Not Reportable Hem Pathologist Commnt No No PT INR APTT Sodium Potassium Chloride Carbon Dioxide Anion Gap BUN Creatinine Estimated GFR BUN/Creatinine Ratio Glucose Lactic Acid Uric Acid Calcium Phosphorus Magnesium Total Bilirubin AST ALT Alkaline Phosphatase Lactate Dehydrogenase Total Protein Albumin Albumin/Globulin Ratio Lipase Urine Color Yellow Urine Turbidity Clear Urine pH 8.0 H Ur Specific [place] 1.053 H Urine Protein <15 mg/dl Urine Glucose (UA) Neg Urine Ketones Neg Urine Blood Neg Urine Nitrite Neg Urine Bilirubin Neg Urine Urobilinogen 4.0 Ur Leukocyte Esterase Lg Urine WBC (Auto) 29.0 H Urine RBC (Auto) 12.0 U Epithel Cells (Auto) 1.0 Urine Bacteria (Auto) 1+ Urine Mucus Few Blood Type Antibody Screen 04/04/21 04/04/21 04:53 04:53 WBC RBC Hgb Hct MCV MCH MCHC RDW Plt Count Add Manual Diff Total Counted Seg Neuts % (Manual) Band Neutrophils % Lymphocytes % (Manual) Monocytes % (Manual) Eosinophils % (Manual) Metamyelocytes % Myelocytes % Nucleated RBC % Seg Neutrophils # Man Band Neutrophils # Lymphocytes # (Manual) Abs React Lymphs (Man) Monocytes # (Manual) Eosinophils # (Manual) Basophils # (Manual) Metamyelocytes # Myelocytes # Promyelocytes # Blast Cells # WBC Morphology Hypersegmented Neuts Hyposegmented Neuts Hypogranular Neuts Smudge Cells Toxic Granulation Toxic Vacuolation Dohle Bodies Pelger-Huet Anomaly Shahnaz Rods Platelet Estimate Clumped Platelets Plt Clumps, EDTA Large Platelets Giant Platelets Platelet Satelliting Plt Morphology Comment RBC Morphology Dimorphic RBCs Polychromasia Hypochromasia Poikilocytosis Anisocytosis Microcytosis Macrocytosis Spherocytes Pappenheimer Bodies Sickle Cells Target Cells Tear Drop Cells Ovalocytes Helmet Cells Good-Harahan Bodies [place] Rings [place] Cells Bite Cells Crenated Cell Elliptocytes Acanthocytes (Spur) Rouleaux Hemoglobin C Crystals Schistocytes Malaria parasites Manohar Bodies Hem Pathologist Commnt PT 14.4 INR 1.06 APTT Sodium 131 L Potassium 3.6 Chloride 97.5 L Carbon Dioxide 25 Anion Gap 12 BUN 6 L Creatinine 0.2 L Estimated GFR > 60 BUN/Creatinine Ratio 30 Glucose 103 H Lactic Acid Uric Acid Calcium 8.1 L Phosphorus Magnesium Total Bilirubin AST ALT Alkaline Phosphatase Lactate Dehydrogenase Total Protein Albumin Albumin/Globulin Ratio Lipase Urine Color Urine Turbidity Urine pH Ur Specific [place] Urine Protein Urine Glucose (UA) Urine Ketones Urine Blood Urine Nitrite Urine Bilirubin Urine Urobilinogen Ur Leukocyte Esterase Urine WBC (Auto) Urine RBC (Auto) U Epithel Cells (Auto) Urine Bacteria (Auto) Urine Mucus Blood Type Antibody Screen
--- NOTE | 2021-04-04 08:47 | Progress Note ---
Assessment and Plan Assessment and plan: Hemoptysis Lung CA Hypertension Anemia 04/04/2021. No need for PRBCs at present. Patient's H&H is stable. Will transfuse for hemoglobin less than 7.0. Oncology recommends hemoglobin electrophoresis and SPEP. Await pulmonary evaluation. If H&H remains stable will anticipate discharge and follow-up with her oncologist as an outpatient. History Interval history: No new issues overnight. Hospitalist Physical - Constitutional Vitals: Temp Pulse Resp BP Pulse Ox 98.3 F 99 H 18 141/63 95 04/04/21 05:36 04/04/21 05:36 04/04/21 05:36 04/04/21 05:36 04/04/21 05:36 General appearance: Present: no acute distress, well-nourished - EENT Eyes: Present: PERRL, EOM intact ENT: hearing intact, clear oral mucosa, dentition normal - Neck Neck: Present: supple, normal ROM - Respiratory Respiratory effort: normal Respiratory: bilateral: CTA - Cardiovascular Rhythm: regular Heart Sounds: Present: S1 & S2. Absent: gallop, rub - Extremities Extremities: no ischemia, No edema, Full ROM - Abdominal General gastrointestinal: soft, non-tender, non-distended, normal bowel sounds - Integumentary Integumentary: Present: clear, warm, dry - Neurologic Neurologic: CNII-XII intact, moves all extremities Results - Labs CBC & Chem 7: 04/04/21 04:53 04/04/21 04:53 Labs: Laboratory Last Values WBC 17.2 K/mm3 (4.5-11.0) H 04/04/21 04:53 RBC 2.76 M/mm3 (3.65-5.03) L 04/04/21 04:53 Hgb 8.0 gm/dl (10.1-14.3) L 04/04/21 04:53 Hct 24.7 % (30.3-42.9) L 04/04/21 04:53 MCV 89 fl (79-97) 04/04/21 04:53 MCH 29 pg (28-32) 04/04/21 04:53 MCHC 32 % (30-34) 04/04/21 04:53 RDW 24.7 % (13.2-15.2) H 04/04/21 04:53 Plt Count 293 K/mm3 (140-440) 04/04/21 04:53 Add Manual Diff Complete 04/04/21 04:53 Total Counted 100 04/04/21 04:53 Seg Neuts % (Manual) 90.0 % (40.0-70.0) H 04/04/21 04:53 Band Neutrophils % 1.0 % 04/04/21 04:53 Lymphocytes % (Manual) 6.0 % (13.4-35.0) L 04/04/21 04:53 Monocytes % (Manual) 2.0 % (0.0-7.3) 04/04/21 04:53 Eosinophils % (Manual) 1.0 % (0.0-4.3) 04/03/21 20:47 Metamyelocytes % 1.0 % 04/04/21 04:53 Myelocytes % 2.0 % 04/03/21 20:47 Nucleated RBC % Not Reportable 04/04/21 04:53 Seg Neutrophils # Man 15.5 K/mm3 (1.8-7.7) H 04/04/21 04:53 Band Neutrophils # 0.2 K/mm3 04/04/21 04:53 Lymphocytes # (Manual) 1.0 K/mm3 (1.2-5.4) L 04/04/21 04:53 Abs React Lymphs (Man) 0.0 K/mm3 04/04/21 04:53 Monocytes # (Manual) 0.3 K/mm3 (0.0-0.8) 04/04/21 04:53 Eosinophils # (Manual) 0.0 K/mm3 (0.0-0.4) 04/04/21 04:53 Basophils # (Manual) 0.0 K/mm3 (0.0-0.1) 04/04/21 04:53 Metamyelocytes # 0.2 K/mm3 04/04/21 04:53 Myelocytes # 0.0 K/mm3 04/04/21 04:53 Promyelocytes # 0.0 K/mm3 04/04/21 04:53 Blast Cells # 0.0 K/mm3 04/04/21 04:53 WBC Morphology Not Reportable 04/04/21 04:53 Hypersegmented Neuts Not Reportable 04/04/21 04:53 Hyposegmented Neuts Not Reportable 04/04/21 04:53 Hypogranular Neuts Not Reportable 04/04/21 04:53 Smudge Cells Not Reportable 04/04/21 04:53 Toxic Granulation Not Reportable 04/04/21 04:53 Toxic Vacuolation Not Reportable 04/04/21 04:53 Dohle Bodies Not Reportable 04/04/21 04:53 Pelger-Huet Anomaly Not Reportable 04/04/21 04:53 Shahnaz Rods Not Reportable 04/04/21 04:53 Platelet Estimate Consistent w auto 04/04/21 04:53 Clumped Platelets Not Reportable 04/04/21 04:53 Plt Clumps, EDTA Not Reportable 04/04/21 04:53 Large Platelets Not Reportable 04/04/21 04:53 Giant Platelets Not Reportable 04/04/21 04:53 Platelet Satelliting Not Reportable 04/04/21 04:53 Plt Morphology Comment Not Reportable 04/04/21 04:53 RBC Morphology Not Reportable 04/04/21 04:53 Dimorphic RBCs Not Reportable 04/04/21 04:53 Polychromasia Few 04/04/21 04:53 Hypochromasia Not Reportable 04/04/21 04:53 Poikilocytosis Not Reportable 04/04/21 04:53 Anisocytosis 2+ 04/04/21 04:53 Microcytosis Not Reportable 04/04/21 04:53 Macrocytosis Not Reportable 04/04/21 04:53 Spherocytes Not Reportable 04/04/21 04:53 Pappenheimer Bodies Not Reportable 04/04/21 04:53 Sickle Cells Not Reportable 04/04/21 04:53 Target Cells Not Reportable 04/04/21 04:53 Tear Drop Cells Not Reportable 04/04/21 04:53 Ovalocytes Not Reportable 04/04/21 04:53 Helmet Cells Not Reportable 04/04/21 04:53 [place] Bodies Not Reportable 04/04/21 04:53 Dilliner Rings Not Reportable 04/04/21 04:53 [place] Cells Not Reportable 04/04/21 04:53 Bite Cells Not Reportable 04/04/21 04:53 Crenated Cell Not Reportable 04/04/21 04:53 Elliptocytes Not Reportable 04/04/21 04:53 Acanthocytes (Spur) Not Reportable 04/04/21 04:53 Rouleaux Not Reportable 04/04/21 04:53 Hemoglobin C Crystals Not Reportable 04/04/21 04:53 Schistocytes Not Reportable 04/04/21 04:53 Malaria parasites Not Reportable 04/04/21 04:53 Manohar Bodies Not Reportable 04/04/21 04:53 Hem Pathologist Commnt No 04/04/21 04:53 PT 14.4 Sec. (12.2-14.9) 04/04/21 04:53 INR 1.06 (0.87-1.13) 04/04/21 04:53 APTT 33.3 Sec. (24.2-36.6) 04/03/21 17:51 Sodium 131 mmol/L (137-145) L 04/04/21 04:53 Potassium 3.6 mmol/L (3.6-5.0) 04/04/21 04:53 Chloride 97.5 mmol/L (98-107) L 04/04/21 04:53 Carbon Dioxide 25 mmol/L (22-30) 04/04/21 04:53 Anion Gap 12 mmol/L 04/04/21 04:53 BUN 6 mg/dL (7-17) L 04/04/21 04:53 Creatinine 0.2 mg/dL (0.6-1.2) L 04/04/21 04:53 Estimated GFR > 60 ml/min 04/04/21 04:53 BUN/Creatinine Ratio 30 % 04/04/21 04:53 Glucose 103 mg/dL (65-100) H 04/04/21 04:53 Lactic Acid 1.20 mmol/L (0.7-2.0) 04/03/21 17:51 Uric Acid 3.7 mg/dL (3.5-7.6) 04/03/21 17:51 Calcium 8.1 mg/dL (8.4-10.2) L 04/04/21 04:53 Phosphorus 3.30 mg/dL (2.5-4.5) 04/03/21 17:51 Magnesium 1.60 mg/dL (1.7-2.3) L 04/03/21 17:51 Total Bilirubin 0.20 mg/dL (0.1-1.2) 04/03/21 17:51 AST 23 units/L (5-40) 04/03/21 17:51 ALT 27 units/L (7-56) 04/03/21 17:51 Alkaline Phosphatase 241 units/L (35-129) H 04/03/21 17:51 Lactate Dehydrogenase 208 units/L (91-180) H 04/03/21 17:51 Total Protein 6.6 g/dL (6.3-8.2) 04/03/21 17:51 Albumin 3.0 g/dL (3.9-5) L 04/03/21 17:51 Albumin/Globulin Ratio 0.8 % 04/03/21 17:51 Lipase 34 units/L (13-60) 04/03/21 17:51 Urine Color Yellow (Yellow) 04/03/21 20:34 Urine Turbidity Clear (Clear) 04/03/21 20:34 Urine pH 8.0 (5.0-7.0) H 04/03/21 20:34 Ur Specific [place] 1.053 (1.003-1.030) H 04/03/21 20:34 Urine Protein <15 mg/dl mg/dL (Negative) 04/03/21 20:34 Urine Glucose (UA) Neg mg/dL (Negative) 04/03/21 20:34 Urine Ketones Neg mg/dL (Negative) 04/03/21 20:34 Urine Blood Neg (Negative) 04/03/21 20:34 Urine Nitrite Neg (Negative) 04/03/21 20:34 Urine Bilirubin Neg (Negative) 04/03/21 20:34 Urine Urobilinogen 4.0 mg/dL (<2.0) 04/03/21 20:34 Ur Leukocyte Esterase Lg (Negative) 04/03/21 20:34 Urine WBC (Auto) 29.0 /HPF (0.0-6.0) H 04/03/21 20:34 Urine RBC (Auto) 12.0 /HPF (0.0-6.0) 04/03/21 20:34 U Epithel Cells (Auto) 1.0 /HPF (0-13.0) 04/03/21 20:34 Urine Bacteria (Auto) 1+ /HPF (Negative) 04/03/21 20:34 Urine Mucus Few /HPF 04/03/21 20:34 Blood Type B POSITIVE 04/03/21 17:51 Antibody Screen Positive 04/03/21 17:51 Microbiology: Microbiology 04/03/21 17:58 Peripheral/Venous Blood Culture - Preliminary Culture in Progress 04/03/21 17:51 Peripheral/Venous Blood Culture - Preliminary Culture in Progress Active Medications - Current Medications Current Medications: Generic Name Dose Route Start Last Admin Trade Name Freq PRN Reason Stop Dose Admin Acetaminophen 650 mg 04/03/21 23:23 04/04/21 03:11 Acetaminophen 325 Mg Tab PO 650 mg Q4H PRN Administration Pain MILD(1-3)/Fever >100.5/MONTIEL Sodium Chloride 1,000 mls @ 75 mls/hr 04/03/21 23:30 04/04/21 01:30 Nacl 0.9% 1000 Ml IV 75 mls/hr DIRECT LUCY Administration Ceftriaxone Sodium 1 gm in 50 mls @ 100 mls/hr 04/04/21 22:00 Rocephin/Ns 1 Gm/50 Ml IV 04/08/21 23:59 Q24H LUCY Protocol Morphine Sulfate 2 mg 04/03/21 23:23 Morphine 2 Mg/1 Ml Inj IV Q4H PRN Pain, Moderate (4-6) Ondansetron HCl 4 mg 04/03/21 23:23 Ondansetron 4 Mg/2 Ml Inj IV Q8H PRN Nausea And Vomiting Sodium Chloride 10 ml 04/04/21 10:00 Sodium Chloride 0.9% 10 Ml Flush Syringe IV BID LUCY Sodium Chloride 10 ml 04/03/21 23:23 Sodium Chloride 0.9% 10 Ml Flush Syringe IV PRN PRN LINE FLUSH
--- NOTE | 2021-04-04 18:07 | Electrocardiograph Report ---
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
[2021-04-04] MEDS ORDERED: cefTRIAXone/NS 1 GM/50 ML 1 GM/50 ML BAG IV SCH (22:00)
[2021-04-05] MEDS: ACETAMINOPHEN 325 MG TAB PO PRN ×2 (00:31→07:36)
[2021-04-05 06:31] VITALS: BP 147/78
[2021-04-05 06:40] LABS: Hematocrit 27.3 % (30.3-42.9); Mean Corpuscular HGB Conc 33 % (30-34); Mean Corpuscular Volume 94 fl (79-97); Platelet Count 332 K/mm3 (140-440)
--- NOTE | 2021-04-05 08:18 | Discharge Summary ---
Providers - Providers Date of Admission: 04/03/21 23:01 Date of discharge: 04/05/21 Attending physician: STEVEN SALAS 04/03/21 23:23 Consult to Physician [CONS] Routine Comment: Consulting Provider: ADITYA NOEL Physician Instructions: Reason For Exam: Hemoptysis, H/O Lung ca. 04/04/21 02:39 Consult to Physician [CONS] Routine Comment: Consulting Provider: DAIANA DALY Physician Instructions: Reason For Exam: Hemoptysis Hospitalization Reason for admission: hemoptysis Condition: Fair Hospital course: 65yo AA woman with lung cancer (details unavailable), followed by Dr. Sajan Cain at [facility]. Patient is currently under chemotherapy with recent treatment prior to admission. Patient was admitted with diagnosis of hemoptysis and anemia. Patient was seen by heme-onc who felt that the moderate anemia was partly due to chemotherapy. Hemoptysis resolved during hospitalization. Etiology likely secondary to lung CA and bronchitis. Patient was treated empirically with ceftriaxone. Patient will be discharged with Ceftin. Patient is to follow-up with her oncologist at [facility] after discharge. H&H remained stable throughout hospitalization. Dedicated discharge time 35 minutes Disposition: DC-01 TO HOME OR SELFCARE Final Discharge Diagnosis (Prints w/discharge instructions): Hemoptysis, lung CA, anemia, bronchitis Core Measure Documentation - Palliative Care Palliative Care/ Comfort Measures: Not Applicable - Core Measures Any of the following diagnoses?: none Exam - Constitutional Vitals: Temp Pulse Resp BP Pulse Ox 97.9 F 92 H 18 147/78 97 04/05/21 04:28 04/05/21 04:28 04/05/21 08:00 04/05/21 04:28 04/05/21 04:28 General appearance: Present: no acute distress, well-nourished - EENT Eyes: Present: PERRL ENT: hearing intact, clear oral mucosa - Neck Neck: Present: supple, normal ROM - Respiratory Respiratory effort: normal Respiratory: bilateral: CTA - Cardiovascular Heart Sounds: Present: S1 & S2. Absent: rub, click - Extremities Extremities: pulses symmetrical, No edema Peripheral Pulses: within normal limits - Abdominal General gastrointestinal: Present: soft, non-tender, non-distended, normal bowel sounds Female genitourinary: Present: normal - Integumentary Integumentary: Present: clear, warm, dry - Musculoskeletal Musculoskeletal: gait normal, strength equal bilaterally - Psychiatric Psychiatric: appropriate mood/affect, intact judgment & insight - Neurologic Neurologic: CNII-XII intact, moves all extremities Plan Activity: advance as tolerated Weight Bearing Status: Weight Bear as Tolerated Diet: regular Follow up with: [facility] [Other] - 3-5 Days Prescriptions: cefUROXime [Ceftin] 500 mg PO Q12H 7 Days tablet
[2021-04-05 11:59] LABS: Total Cells Counted 100
[2021-04-05 12:00] LABS: Platelet Estimate Consistent w Auto
[2021-04-08 23:54] LABS: Albumin 2.2 g/dL (3.8-4.8); Gamma Globulin 1.3 g/dL (0.8-1.7)
[2021-04-19 12:24] LABS: Hemoglobin A2 Prime SEE SCANNED RESULT; Hemoglobin Barts SEE SCANNED RESULT; Hemoglobin E SEE SCANNED RESULT; Hemoglobin G SEE SCANNED RESULT; Hemoglobin Lepore SEE SCANNED RESULT; Hemoglobin O-Arab SEE SCANNED RESULT; IEF Confirm SEE SCANNED RESULT; Interpretation SEE SCANNED RESULT; Sickle Solubility Test SEE SCANNED RESULT
== END 2021-04-05 12:00 | disposition home or self-care (01) ==
LOC: ED 17:30 → 3A 23:01
PROVIDERS: ADMIT Internal Medicine Geriatric Medicine; ATTEND Hospitalist
DX: R04.2 Hemoptysis (principal); I10 Essential (primary) hypertension; J44.9 Chronic obstructive pulmonary disease, unspecified; D64.9 Anemia, unspecified; N39.0 Urinary tract infection, site not specified; Z85.118 Personal history of other malignant neoplasm of bronchus and lung; Z87.891 Personal history of nicotine dependence; Z79.899 Other long term (current) drug therapy; Z98.890 Other specified postprocedural states
CPT/HCPCS: 36415; 71045; 71275; 80048; 80053; 81001; 82140; 83615; 83690; 83735; 84100; 84165; 84550; 85007; 85025; 85610; 85730; 86850; 86870; 86900; 86901; 87040; 87086; 93005; 96361; 96365; 96366; 96375; 99291; C9113; G0378; J0696; J2405; J7030; J7040; Q9967